=== PATIENT | male | born 1985 | race Caucasian/White ===

== ENCOUNTER 2019-08-18 06:16 | Observation (INO) | payer OTHER, SELFPAY ==
[2019-08-18] VITALS (11 sets, daily range): BP systolic 119–148; BP diastolic 63–94; PULSE 68–140; RESP 14–18; TEMP 36.2–37.1; O2SAT 96–100
--- NOTE | 2019-08-18 | ECHO_ITS ---
Patient Info Name: Jde Gilmore Age: 33 years : 1985 Gender: Male Ht: 75 in Wt: 210 lbs BSA: 2.25 m2 HR: 88 bpm BP: 125 / 94 mmHg Technical Quality: Excellent Exam Date: 08/18/2019 1:43 PM Exam Location: [facility] Pulmonary Patient Status: Inpatient Admit Date: 08/18/2019 Staff Ordering Physician: Scott Chung MD Printed Forms Proofreader: Anabella Mohr RDCS Attending Provider: Scott Chung MD Exam Type: CA echo doppler color flow Study Info Indications R00.0 - Tachycardia, unspecified Complete two-dimensional, color flow and Doppler transthoracic echocardiogram is performed. Summary 1. Left ventricular chamber dimension is normal. 2. Left ventricular systolic function is normal, estimated at 60-65%. 3. The left ventricular diastolic function is normal. 4. E/e' 5 is not elevated. 5. Global longitudinal strain is normal at -18.7%. 6. No pulmonary hypertension, estimated pulmonary arterial systolic pressure is 24 mmHg. Left Ventricle E/e' 5 is not elevated. Global longitudinal strain is normal at -18.7%. Left ventricular chamber dimension is normal. Left ventricular systolic function is normal, estimated at 60-65%. The left ventricular diastolic function is normal. Right Ventricle Right ventricular chamber dimension is normal. Right ventricular systolic function is normal. Left Atria Left atrial chamber dimension is normal. Right Atria Right atrial chamber dimension is normal. Aortic Valve The aortic valve is trileaflet. There is no aortic valve stenosis. There is no aortic valve regurgitation. Pulmonic Valve There is no pulmonic regurgitation. Mitral Valve There is no mitral valve stenosis. There is no mitral valve regurgitation. Tricuspid Valve There is no tricuspid valve regurgitation. No pulmonary hypertension, estimated pulmonary arterial systolic pressure is 24 mmHg. Pericardium/Pleural There is no pericardial effusion. Inferior Vena Cava Normal inferior vena cava with >50% collapse upon inspiration consistent with normal right atrial pressure, 5 mmHg. Aorta The aortic root size at the sinus of Valsalva is normal. Left Ventricular Outflow Tract Name Value Normal LVOT 2D LVOT Diameter 2.1 cm LVOT Doppler LVOT Peak Gradient 4 mmHg LVOT Mean Gradient 2 mmHg LVOT VTI 19 cm LVOT VTI/AV VTI Ratio 0.9 LVOT Stroke Volume 63 ml LVOT CO 5.3 l/min LVOT CI 2.3 l/min/m2 Pulmonic Valve Name Value Normal RVOT Doppler RVOT Peak Gradient 3 mmHg PV Doppler PV Peak Gradient 5 mmHg
--- NOTE | ~2019-08-18 | CT_ITS ---
EXAMINATION: CT brain wo con DATE: 08/18/2019 06:39 INDICATION: Seizure. TECHNIQUE: Computed tomography (CT) of the head was performed without intravenous contrast. The mA wa s adjusted according to patient size. Iterative reconstruction technique was employed. The dose-lengt h product was 832.33 mGy-cm. COMPARISON: None FINDINGS: There is no intracranial hemorrhage, acute infarction, or abnormal intracranial mass lesion . The ventricles are normal in size. The orbits are normal. There is mild mucosal thickening in the p aranasal sinuses. The mastoid air cells are normal. The orbits are normal. IMPRESSION: 1. Normal brain. Motion artifact moderately decreases sensitivity. Reviewed, dictated and finalized at location A.
--- NOTE | ~2019-08-18 | XR_ITS ---
EXAMINATION: XR chest 2V DATE: 08/18/2019 09:22 INDICATION: Seizure. TECHNIQUE: Frontal and lateral views of the chest were obtained. COMPARISON: None. FINDINGS: The chest demonstrates clear lungs without pneumonia, pleural effusion, or pneumothorax. Th e heart size is normal. IMPRESSION: 1. No acute cardiopulmonary disease. Reviewed, dictated and finalized at location A.
--- NOTE | ~2019-08-18 | MR_ITS ---
EXAMINATION: MR brain/brain stem wo/w con DATE: 08/18/2019 16:29 INDICATION: Seizure. TECHNIQUE: Magnetic resonance imaging (MRI) of the brain and brainstem was performed without and with 19 mL MultiHance intravenous contrast. Sequences included sagittal and axial T1-weighted FSE, axial diffusion-weighted FS EPI, axial T2*-weighted GRE, axial T2-weighted FLAIR Propeller, axial T2-weight ed Propeller, coronal T2-weighted FLAIR, and coronal T1-weighted 3D FSPGR. Postcontrast axial and cor onal T1-weighted FSE was obtained. Apparent diffusion coefficient (ADC) maps were created. COMPARISON: Head CT 08/18/2019 FINDINGS: There is polymicrogyria along the sylvian fissures, left worse than right. The hippocampi a re normal and symmetric. There is no intracranial hemorrhage, acute infarction, or abnormal intracran ial mass lesion. The ventricles are normal in size. There is mild mucosal thickening in the ethmoid s inuses. The orbits are normal. The mastoid air cells are normal. IMPRESSION: 1. Bilateral perisylvian polymicrogyria, left worse than right. Reviewed, dictated and finalized at location E.
--- NOTE | 2019-08-18 06:21 | ED.SEIZURE ---
HPI - Seizure General Chief Complaint: Seizure Stated Complaint: ams Time Seen by Provider: 08/18/19 06:19 History of Present Illness HPI Narrative: Brought in by EMS from home for suspected seizure. awoke to find him in bed next to her shaking with altered mental status. unknown how long the event lasted. He was confused and combative for EMS. He was given haldol and valium prior to arrival. On arrival to the ED he is awake and drowsy. No memory of the event. No previous seizures or medical history. He says that he drinks a few beers every other day. No h/o withdrawal or recent changes in drinking habits. No other drug use. No fever, SAENZ, recent illness. Related Data Home Medications Medication Instructions Recorded Confirmed No Home Medications 08/18/19 08/18/19 Allergies Allergy/AdvReac Type Severity Reaction Status Date / Time No Known Allergies Allergy Unverified 08/18/19 06:21 Review of Systems Review of Systems: All systems reviewed & are unremarkable except as noted in HPI and below Constitutional: Constitutional: Denies fever(s) Eyes: Eyes: Denies change in vision Cardiovascular: Cardiovascular: Denies chest pain Respiratory: Respiratory: Denies cough and Denies dyspnea Gastrointestinal: Gastrointestinal: Denies nausea Neurologic: Denies headache(s), Denies numbness and Denies weakness PMFSH Social History Social History Smoking status: Never smoker Alcohol intake: current Drinks per week: 10 Substance use: never Gender identity (if verbalized by the patient): Male Spiritual care concerns: No Agree to blood products: Yes Exam Const: General: healthy appearing and no acute distress Nutritional Appearance: well nourished Orientation/consciousness: patient oriented x3 HENMT: Mouth: Yes moist mucous membranes Other: minor laceration to tongue Eyes: Conjunctivae: conjunctivae normal Pupils: Equal, round and reactive pupils present EOM: EOMs intact bilaterally Resp: Effort & Inspection: normal respiratory effort Auscultation: clear to auscultation bilaterally Cardio: Rate: tachycardic Rhythm: regular rhythm GI: Other: soft, NTND Neuro: General: patient oriented x3, moves all extremities and no focal motor deficits Speech: normal speech Extrem: General: normal to inspection Course Vital Signs Vital signs: Vital Signs Temperature 37.1 C 08/18/19 06:16 Pulse Rate 127 H 08/18/19 06:16 Respiratory Rate 16 08/18/19 06:16 Pulse Oximetry 96 08/18/19 06:16 Temperature 37.1 C 08/18/19 06:16 Pulse Rate 140 H 08/18/19 12:00 Respiratory Rate 16 08/18/19 09:39 Blood Pressure 125/94 H 08/18/19 09:39 Pulse Oximetry 97 08/18/19 09:39 MDM - Seizure MDM Narrative Medical decision making narrative: No specific cause found for seizure. persistently tachycardic despite hydration. I will admit for observation. Differential Diagnosis Differential diagnosis: Likely generalized seizure, new onset seizure and other (alcohol withdrawal, drug induced, COVID19, viral infection) Medical Records Attestation: I reviewed the patient's medical records. Lab Data Attestation: I reviewed the patient's lab results. Result diagrams: 08/18/19 06:28 08/18/19 06:28 Labs: Lab Results 08/18/19 08/18/19 08/18/19 Range/Units 06:28 06:28 06:28 WBC 9.4 (4.5-10.0) K/mm3 RBC 5.35 (4.6-6.20) M/mm3 Hgb 15.2 (14.0-18.0) g/dL Hct 47.1 (42.0-52.0) % MCV 88.0 (80-100) fl MCH 28.4 (26-34) pg MCHC 32.3 (32-36) g/dl RDW 13.0 (11.5-14.5) % Plt Count 251 (150-375) k/mm3 MPV 9.9 (7.4-10.4) fl Immature Gran % (Auto) 0.6 H (0-0.5) % Neut % (Auto) 35.8 L (45.5-73.1) % Lymph % (Auto) 51.3 H (18.3-44.2) % [place] % (Auto) 7.2 (2.6-8.5) % Eos % (Auto) 4.6 H (0-4.4) % Baso % (Auto) 0.5 (0.2-1.2) % Lymph # (Auto) 4.82
[2019-08-18] MEDS: SODIUM CHLORIDE 0.9% IV 1,000 ML 999 ML IV CONT ×2 (06:27→07:40)
[2019-08-18] MEDS: levETIRAcetam 1000MG/NACL100ML 1,000 MG/100 ML BAG 400 MG IVPB (06:27)
--- NOTE | 2019-08-18 06:30 | PC.NURSE ---
Patient to CT on portable monitor with RN and transfill technician.
[2019-08-18 06:36] LABS: Basophils Absolute Auto 0.1 K/mm3 (0.0-0.1); Basophils Percent Auto 0.5 % (0.2-1.2); Eosinophils Absolute Auto 0.4 K/mm3 (0-0.3); Eosinophils Percent Auto 4.6 % (0-4.4); Hematocrit 47.1 % (42.0-52.0); Hemoglobin 15.2 g/dL (14.0-18.0); Immature Granulocyte Absolute 0.06 K/mm3 (0.00-0.031); Immature Granulocyte Percent A 0.6 % (0-0.5); Lymphocytes Absolute Auto 4.82 K/mm3 (0.9-3.2); Lymphocytes Percent Auto 51.3 % (18.3-44.2); Mean Corpuscular HGB Conc 32.3 g/dl (32-36); Mean Corpuscular Hemoglobin 28.4 pg (26-34); Mean Platelet Volume 9.9 fl (7.4-10.4); Monocytes Absolute Auto 0.7 K/mm3 (0.1-0.6); Monocytes Percent Auto 7.2 % (2.6-8.5); Neutrophils Absolute Auto 3.4 K/mm3 (1.3-6.7); Neutrophils Percent Auto 35.8 % (45.5-73.1); Platelet Count Result 251 k/mm3 (150-375); Red Blood Count 5.35 M/mm3 (4.6-6.20); White Blood Count 9.4 K/mm3 (4.5-10.0)
[2019-08-18 06:51] LABS: Ethanol < 10 mg/dL (<10)
--- NOTE | 2019-08-18 06:52 | PC.NURSE ---
Patient denies any hx of drug use, reports he drinks 3 beers every other day, denies any hx of withdrawal symptoms. Pt's at bedside, they report pt has no history of seizures. Pt bit tongue during episode, no incontinence.
[2019-08-18 06:54] LABS: Albumin Level 5.1 g/dL (3.5-5.1); Alkaline Phosphatase 88 U/L (38-126); Aspartate Amino Transferase 58 U/L (17-59); Bilirubin,Total 0.5 mg/dL (0.2-1.3); Blood Urea Nitrogen 14 mg/dL (9-20); Calcium 9.2 mg/dL (8.4-10.2); Carbon Dioxide 15 mmol/L (22-30); Chloride 104 mmol/L (98-107); Estimated CRCL calculation 93 ml/min; Estimated Glomerular Filt Rate > 60; Glucose 164 mg/dL (75-110); Potassium 3.1 mmol/L (3.4-5.0); Sodium 140 mmol/L (137-145)
[2019-08-18 06:57] LABS: Prothrombin Time 12.4 Seconds (11.1-14.7)
[2019-08-18 06:58] LABS: Partial Thromboplastin Time 25.6 SECONDS (22.3-36.8)
[2019-08-18 07:08] LABS: Lactic Acid Reflex 6.3 mmol/L (0.7-2.1)
[2019-08-18 07:08] LABS: Alanine Aminotransferase 34 U/L (4-50)
[2019-08-18 07:18] LABS: Add Urine Microscopic? YES; Appearance Urine Clear (Clear); Bilirubin Urine Negative (Negative); Blood Urine 2+ (Negative); Color Urine Yellow (Yellow); Glucose Urine UA Negative (Negative); Ketones Urine Negative (Negative); Leukocyte Esterase Ur Negative LEU/UL (Negative); Mucus Urine Rare /lpf; Nitrate Urine Negative (Negative); Protein Urine 1+ mg/dL (Negative); RBC Urine 0-2 /hpf (0-2); Specific Grav Ur 1.016 (1.001-1.035); Urobilinogen Urine Negative mg/dL (<2.0); WBC Urine 0-3 /hpf
--- NOTE | 2019-08-18 07:18 | PC.NURSE ---
Bedside report given to SANCHO Alvarez.
[2019-08-18 07:28] LABS: Amphetamine Screen Urine Negative (Negative); Barbiturate Screen Urine Negative (Negative); Benzodiazepines Screen Urine Negative (Negative); Cannabinoid Screen Urine Negative (Negative); Cocaine Screen Urine Negative (Negative); Methadone Screen Urine Negative (Negative); Opiate Screen Urine Negative (Negative); Phencyclidine Screen Urine Negative (Negative)
--- NOTE | 2019-08-18 09:05 | ECG_ITS ---
Measurements Intervals [place] Rate: 109 P: 62 OK: 152 QRS: 36 QRSD: 93 T: 50 QT: 334 QTc: 452 Interpretive Statements SINUS TACHYCARDIA INCOMPLETE RIGHT BUNDLE BRANCH BLOCK BASELINE WANDER- V2 ABNORMAL ECG Electronically Signed On 08-18-2019 14:06:47 CDT by Danish Hall D.O.
[2019-08-18 09:51] LABS: Reflex Lactic Acid Yes or No Add Lactic
[2019-08-18 10:34] LABS: Lactic Acid 1.1 mmol/L (0.7-2.1)
--- NOTE | 2019-08-18 10:45 | ADMGEN ---
This patient, Jed Gilmore, was admitted to Medical Room 348-. Patient/family oriented to hospital policies and general routines including ID bracelet, bed and alarms, visiting hours, pain management, procedures, bathroom and other care routines, personal items, smoking policy, room service/diet, and visiting hours. Valuables list has been completed. Information on how to activate the Rapid Response Team has been discussed. Patient/Family are encouraged to report perceived risks to care and to ask questions if they do not understand what they are told or what they should do.
[2019-08-18] MEDS: LACTATED RINGERS 1,000 ML 125 ML IV CONT ×2 (11:57→22:23)
--- NOTE | 2019-08-18 12:26 | PM.IMHP ---
H&P: HPI History of Present Illness Chief complaint: New onset seizure Narrative: 33yo healthy male brought in by EMS for seizure-like activity. Patient has recollection the events. States he woke when he was. No family at bedside. Patient states that his told on that he was ?flexing? with seizure-like activity. Patient had tongue trauma. According to EMS notes, the awoke to find the patient shaking with altered mental status. He was confused and combative for EMS requiring Haldol and Valium. No history of drug use including IV drug use. He drinks 10 alcoholic drinks a week. His last drink was 3 beers last night. He has never had withdrawal type symptoms. No complaints of chest pain or palpitations. No history of seizures. No family history of seizures. No new medications. He does not take medications at all. Detailed review of systems was performed he has no other complaints. Specifically, he denies headaches, sore throat, shortness of breath, cough, nausea, vomiting, diarrhea, abdominal pain, fever or chills. No recent travel. In the emergency room patient was hemodynamically stable. He should be tachycardic with exertion. Lactic acid 6.3 with metabolic acidosis. Urine drug screen was negative. CT of the brain was negative. Alcohol level less than 10. Patient admitted for further care. Review of Systems Review of Systems: All systems reviewed & are unremarkable except as noted in HPI and below PMFSH Past Medical History Medical History New onset seizure Family History Family History Grandparent Multiple sclerosis Mother Thyroid disease Social History Social History Social History: Patient lives at home with his and 2 children. 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 Alcohol use as mentioned above. He is a full code. He nominated his to be the individual who would make medical decisions for him if he is not able. Smoking status: Never smoker Alcohol intake: current Drinks per week: 10 Substance use: never Gender identity (if verbalized by the patient): Male Spiritual care concerns: No Agree to blood products: Yes Meds Home Medications and Allergies Home Medications Medication Instructions Recorded Confirmed Type levetiracetam [Keppra] 500 mg PO Q12HR #60 tablet 08/19/19 Rx Allergies Allergy/AdvReac Type Severity Reaction Status Date / Time No Known Allergies Allergy Unverified 08/18/19 06:21 Vital Signs Vital Signs - 24 hr 08/18/19 06:16 08/18/19 06:20 08/18/19 06:57 Temperature 98.7 F Pulse Rate 127 H 125 H 111 H Respiratory Rate 16 18 Blood Pressure 119/63 Pulse Oximetry 96 98 08/18/19 07:30 08/18/19 08:30 08/18/19 09:39 Temperature Pulse Rate 112 H 106 H 114 H Respiratory Rate 18 16 16 Blood Pressure 124/68 134/86 125/94 H Pulse Oximetry 96 97 97 08/18/19 10:00 Temperature Pulse Rate 95 Respiratory Rate Blood Pressure Pulse Oximetry Exam Narrative: Exam Narrative: Gen - NARD HEENT - NC/AT, PEERL, EOMI, Sclera clear and anicteric, mmm, lateral tongue trauma. No facial asymmetry. Tongue was midline. Palate francie symmetrically. Neck -supple. No dominant adenopathy or masses. No thyromegaly. Chest -lungs clear to auscultation bilaterally. Normal respiratory rate. CV -heart was regular rate and rhythm. S1-S2. No murmurs gallops or rubs. Telemetry showing occasional sinus tachycardia. Abd -soft. Nontender. Nondistended. Positive bowel sounds. No organomegaly. Ext - No pedal edema Neuro - Alert and oriented. Nonfocal exam. Psych - Nml mood and affect Skin - Warm and dry H&P: Results Labs Labs: Short CBC 08/18/19 Range/Units 06:28 WBC 9.4 (4.5-10.0) K/mm3 Hgb 15.2 (14.0-18.0) g/dL Hct 47.1 (42.0-52.0) % Plt Count 251 (150
--- NOTE | 2019-08-18 13:56 | PC.NURSE ---
Patient states there is no past medical history for immediate family to include.
--- NOTE | 2019-08-18 14:51 | WPDNEURCNPN ---
Assessment and Plan Assessment and plan (1) Hypokalemia: Code(s): E87.6 - Hypokalemia Status: Acute (2) Lactic acidosis: Code(s): E87.2 - Acidosis Status: Acute (3) New onset seizure: Code(s): R56.9 - Unspecified convulsions Status: Acute (4) Sinus tachycardia: Code(s): R00.0 - Tachycardia, unspecified Status: Acute Additional Plan I discussed with him the etiology of the seizure which is most likely in his case related to alcohol consumption all questions were answered risk in the benefits of the future therapy were discussed implications further driving were discussed if his brain MRI is negative hopefully it will be done with and without contrast that he can have the EEG performed as an outpatient I will be happy to follow him in couple of months he should not be driving till we are satisfied that the patient does not in had it a tendency to have recurrent seizure the diagnosis of the spine is the 1st single seizure and he agrees for no anticonvulsant therapy on a long-term basis for right now Consult date: 08/18/19 Time Seen: 14:30 HPI: Jed Gilmore is a 33 year old male 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 has no symptoms at the time of this examination apparently was clearly admitted with a history of having had generalized tonic-clonic seizure with postictal confusion and also tongue biting he does not have any previous history of having had seizure he does not have any history of having had meningitis encephalitis or head injury there is no family history of the seizures he was given Keppra and is on Keppra right now without any side effects Review of Systems Review of Systems: All systems reviewed & are unremarkable except as noted in HPI and below PMFSH Past Medical History Medical History New onset seizure Family History Family History Grandparent Multiple sclerosis Mother Thyroid disease Social History Social History Social History: Patient lives at home with his and 2 children. 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 Alcohol use as mentioned above. He is a full code. He nominated his to be the individual who would make medical decisions for him if he is not able. Smoking status: Never smoker Alcohol intake: current Drinks per week: 10 Substance use: never Gender identity (if verbalized by the patient): Male Spiritual care concerns: No Agree to blood products: Yes Meds Home Medications and Allergies Home Medications Medication Instructions Recorded Confirmed Type No Home Medications 08/18/19 08/18/19 History Allergies Allergy/AdvReac Type Severity Reaction Status Date / Time No Known Allergies Allergy Unverified 08/18/19 06:21 Vital Signs Vital Signs - 24 hr 08/18/19 06:16 08/18/19 06:20 08/18/19 06:57 Temperature 37.1 C Pulse Rate 127 H 125 H 111 H Respiratory Rate 16 18 Blood Pressure 119/63 Pulse Oximetry 96 98 08/18/19 07:30 08/18/19 08:30 08/18/19 09:39 Temperature Pulse Rate 112 H 106 H 114 H Respiratory Rate 18 16 16 Blood Pressure 124/68 134/86 125/94 H Pulse Oximetry 96 97 97 08/18/19 10:00 08/18/19 12:00 Temperature Pulse Rate 95 140 H Respiratory Rate Blood Pressure Pulse Oximetry Exam Const: General: comfortable and no acute distress HENMT: General nose exam: Normal nares present Mouth: Yes moist mucous membranes Other: is small tongue bite the from the seizure Eyes: General: appearance normal, both eyes and all related structures Neck: Neck: supple and no JVD Resp: Effort & Inspection: normal respiratory effort Auscultation: clear to auscultation bilaterally Cardio: Rate: regular rate Rhythm: regular rhythm GI: Auscultation: normal bowel sounds Skin: General skin exam:
[2019-08-18 15:24] LABS: Thyroid Stimulating Hormone Reflex 0.621 uIU/mL (0.465-4.68)
[2019-08-18] MEDS: THIAMINE HCL 100 MG TABLET PO (18:16)
[2019-08-18] MEDS: FOLIC ACID 1 MG TABLET PO (18:16)
[2019-08-18] MEDS: levETIRAcetam 500 MG TABLET PO (18:16)
[2019-08-18] MEDS: POTASSIUM CHLORIDE 20 MEQ PACKET (FOR LIQUID) PO (18:21)
[2019-08-19] VITALS: PULSE 80
[2019-08-19 04:28] VITALS: PULSE 66
[2019-08-19 06:00] VITALS: BP 116/62; PULSE 69; RESP 16; TEMP 36.1; O2SAT 97
[2019-08-19 06:29] LABS: Blood Urea Nitrogen 11 mg/dL (9-20); Calcium 8.9 mg/dL (8.4-10.2); Carbon Dioxide 24 mmol/L (22-30); Chloride 108 mmol/L (98-107); Estimated CRCL calculation 122 ml/min; Estimated Glomerular Filt Rate > 60; Glucose 86 mg/dL (75-110); Potassium 3.5 mmol/L (3.4-5.0); Sodium 139 mmol/L (137-145)
[2019-08-19 08:00] VITALS: PULSE 83
[2019-08-19] MEDS: FOLIC ACID 1 MG TABLET PO (08:56)
[2019-08-19] MEDS: levETIRAcetam 500 MG TABLET PO (08:56)
[2019-08-19] MEDS: THIAMINE HCL 100 MG TABLET PO (08:56)
[2019-08-19] MEDS: LACTATED RINGERS 1,000 ML 125 ML IV CONT (08:58)
--- NOTE | 2019-08-19 11:13 | PM.DS ---
DS: Diagnosis Admitting Diagnosis Admitting Diagnosis: Hypokalemia Discharge Diagnosis (1) Bilateral perisylvian polymicrogyria: Code(s): Q04.3 - Other reduction deformities of brain Status: Acute Assessment and Plan: MRI noting bilateral perisylvian polymicrogyria, left worse than right. Plan to continue Keppra. Discussed with neurology. Okay for discharge. No driving has been discussed. Literature has been provided (2) New onset seizure: Code(s): R56.9 - Unspecified convulsions Status: Acute Assessment and Plan: New onset seizure in otherwise healthy male . Seizure was witnessed. Keppra started on admission. MRI as mentioned above. This potentially could be the cause of his seizures. Discussed with neurology who recommended continuing the Keppra after discharge. Patient has been educated multiple times that he is unable to drive at this time until cleared by Neurology. He voices understanding of this. (3) Sinus tachycardia: Code(s): R00.0 - Tachycardia, unspecified Status: Acute Assessment and Plan: Patient with exertional sinus tachycardia. Most likely related to the metabolic acidosis from the elevated lactic level from his seizure. Patient does however provide history he becomes tachycardic with a heart rate greater than 160 when he exercises. Echocardiogram showing EF of 60-65% with normal diastolic function. TSH normal. Recommended that patient proceed at a slower rate when running and try to build up in endurance and conditioning slowly. (4) Lactic acidosis: Code(s): E87.2 - Acidosis Status: Acute Assessment and Plan: Lactic acid 6.3 on admission. Anion gap 21. Glucose 164 but more likely related to the seizure. Urine was negative for ketones. Repeat lactic acid has normalized. Patient treated with IV fluids. Repeat BMP showing anion gap 7. Glucose normalized as well. (5) Hypokalemia: Code(s): E87.6 - Hypokalemia Status: Acute Assessment and Plan: Potassium 3.1 on admission. Potassium was replaced. Repeat potassium normal now. DS: Summary Hospital Course Reason for hospitalization: 33yo healthy male here for seizure. Please see H&P for details. Hospital Course: As detailed above. Time Spent with Patient Time attestation: Total time spent providing and/or coordinating discharge services: 38 minutes Time spent: Greater than 30 minutes Specific discharge activities: long discussion with patient about the MRI findings. Literature was provided. Exam Narrative: Exam Narrative: Gen - NARD Chest -lungs clear to auscultation bilaterally. Normal respiratory rate. CV - Regular rate in rhythm Abd - soft. Nontender. Nondistended. Positive bowel sounds Ext - No pedal edema Neuro - Alert and oriented. Nonfocal exam. Psych - Nml mood and affect Skin - Warm and dry DS: Data Data Completed and Pending Labs on day of discharge: Labs from last 24 hours 08/19/19 08/18/19 05:20 14:03 Sodium 139 Potassium 3.5 Chloride 108 H Carbon Dioxide 24 BUN 11 Creatinine 0.90 Estim Creat Clear Calc 122 Estimated GFR > 60 Glucose 86 Calcium 8.9 TSH (Reflex) 0.621 Discharge Plan Discharge Attending physician on discharge: Scott Chung Consulting providers: Clarence Hernandez Discharging Clinician: Scott Chung Anticipated Discharge Date/Time: 08/19/19 11:33 Patient Disposition: Home, Self-Care Activity: no driving Diet: regular Discharge Instructions: please call Neurology to set up an appointment. Patient Instructions: Antibiotic Form Stand Alone Forms: General Discharge Information Follow-up/Referrals: Cale Ponce MD [Primary Care Provider] - Call for Appointment Clarence Hernandez MD [Physician] - Call for Appointment Discharge Medications: New levetiracetam [Keppra] 500 mg Tablet 500 mg PO Q12HR Qty: 60 R
== END 2019-08-19 11:54 | disposition home or self-care (01) ==
LOC: ANHED 06:39 → ANH3MED 09:30
PROVIDERS: Admitting Provider Internal Medicine; Emergency Provider Emergency Medicine; PCP Family Medicine; Visit Provider Internal Medicine
DX: R56.9 Unspecified convulsions (principal); Q04.3 Other reduction deformities of brain; R00.0 Tachycardia, unspecified; E87.2 Acidosis; E87.6 Hypokalemia; Z72.89 Other problems related to lifestyle
CPT/HCPCS: 36415; 70450; 70553; 71046; 80048; 80053; 80307; 81001; 83605; 84443; 85025; 85610; 85730; 93005; 93306; 96360; 96361; 96365; 99285; A9270; A9577; G0378; J1953; J7030; J7120

== ENCOUNTER 2021-02-09 08:30 | Emergency (ER) | payer OTHER, SELFPAY ==
[2021-02-09] VITALS (12 sets, daily range): BP systolic 107–123; BP diastolic 75–80; PULSE 97–127; RESP 9–18; TEMP 36.8; O2SAT 92–99
--- NOTE | 2021-02-09 08:45 | ECG_ITS ---
Measurements Intervals [place] Rate: 122 P: 49 DC: 132 QRS: 27 QRSD: 89 T: 54 QT: 337 QTc: 481 Interpretive Statements SINUS TACHYCARDIA BORDERLINE ST-T WAVE ABNORMALITY- ANT/HIGH LAT LEAD BASELINE WANDER- V4 ABNORMAL ECG Electronically Signed On 02-09-2021 11:13:44 CDT by Danish Hall D.O.
--- NOTE | 2021-02-09 08:45 | ED.SEIZURE ---
HPI - Seizure General Chief Complaint: Seizure Stated Complaint: SEIZURE Time Seen by Provider: 02/09/21 08:31 History of Present Illness HPI Narrative: Patient presents with concern for seizure. Patient reports he had a seizure approximately a year and 1/2 hours admitted to this facility had MRI was allowed by neurologist. He was discharged home on Keppra twice daily. He supposed to have an outpatient EEG per records however patient reported he never follow-up with a neurologist this is been taking his Keppra. Over the past 2 weeks he tried to self wean his medications taking any medications over the past couple days. This morning he had 2 episodes per EMS and of tonic-clonic seizures with a postictal state is referred to the ER for evaluation. Reports he feels well right now denies any complaints such as headache, chest pain, abdominal pain. Denies any focal numbness or weakness. Ports of the past days been his usual state of health is not any fevers cough congestion. Seizure History: Yes Related Data Allergies Allergy/AdvReac Type Severity Reaction Status Date / Time No Known Allergies Allergy Unverified 08/18/19 06:21 Review of Systems Review of Systems: CONSTITUTIONAL: Denies fever, chills, or sweats. EYES: Denies visual changes, redness, or discharge. ENT: Denies rhinorrhea, congestion, sore throat, or otalgia. CARDIOVASCULAR: Denies chest pain, palpitations, or edema. RESPIRATORY: Denies cough or dyspnea. GASTROINTESTINAL: Denies abdominal pain, nausea, vomiting, or diarrhea. GENITOURINARY: Denies dysuria or hematuria. SKIN: Denies rash or itching. MUSCULOSKELETAL: Denies back pain, joint pain, or myalgia. NEUROLOGIC: Denies headache, numbness, dizziness, or weakness. PSYCHIATRIC: Denies anxiety or depression. All systems reviewed & are unremarkable except as noted in HPI and below PMFSH Past Medical History Medical History (Updated 02/09/21 @ 09:54 by Chris Garcia MD) New onset seizure Family History Family History Grandparent Multiple sclerosis Mother Thyroid disease Social History Social History Social History: Patient lives at home with his and 2 children. 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 Alcohol use as mentioned above. He is a full code. He nominated his to be the individual who would make medical decisions for him if he is not able. Smoking status: Never smoker Alcohol intake: current Drinks per week: 10 Substance use: never Gender identity (if verbalized by the patient): Male Spiritual care concerns: No Agree to blood products: Yes Exam Narrative: GENERAL: Well-appearing, well-nourished, and in no acute distress. HEAD: Normocephalic, atraumatic. EYES: PERRLA and EOMI. ENT: Nares clear, no rhinorrhea or epistaxis. Mucous membranes moist. NECK: Supple. No masses. No JVD ABDOMEN: Soft, nontender, nondistended, normal active bowel sounds. EXTREMITIES: Normal range of motion. No edema. SKIN: Warm, dry, no rash. NEURO: Cranial nerves II through XII are intact patient has 5 out of 5 strength in all extremities sensation intact to light touch in all extremities alert and oriented x3. PSYCH: Normal mood and affect. Course Reevaluation(s) Reevaluation #1: Patient is resting comfortably has no complaints and is feeling back to his usual state of health. Family is at bedside and for patient is like he is usual self. Suspect recurrent seizure due to weaning of medication. Patient is appropriate for resumption of his medications and outpatient follow-up with a neurologist. Patient comfortable outpatient plan. Seizure precautions and education given Date: 02/09/21 Time: 09:51 Vital Signs Vital signs: Vital Signs Temperature 36.8 C 02/09/21 08:25 Pulse Rate 127 H 02/09/21 08:25 Respiratory Rate 16 02/09/21 08:25 Blood Pressure 107/76
[2021-02-09] MEDS: SODIUM CHLORIDE 0.9% IV 1,000 ML 999 ML IV CONT (08:55)
[2021-02-09] MEDS: levETIRAcetam 500 MG TABLET PO (08:55)
[2021-02-09 09:25] LABS: Basophils Percent Auto 0.4 % (0.2-1.2); Eosinophils Absolute Auto 0.1 K/mm3 (0-0.3); Eosinophils Percent Auto 0.9 % (0-4.4); Hematocrit 42.2 % (42.0-52.0); Hemoglobin 14.3 g/dL (14.0-18.0); Immature Granulocyte Absolute 0.04 K/mm3 (0.00-0.031); Immature Granulocyte Percent A 0.5 % (0-0.5); Lymphocytes Absolute Auto 0.61 K/mm3 (0.9-3.2); Lymphocytes Percent Auto 7.9 % (18.3-44.2); Mean Corpuscular HGB Conc 33.9 g/dl (32-36); Mean Corpuscular Hemoglobin 29.6 pg (26-34); Mean Corpuscular Volume 87.4 fl (80-100); Mean Platelet Volume 9.7 fl (7.4-10.4); Monocytes Absolute Auto 0.4 K/mm3 (0.1-0.6); Monocytes Percent Auto 4.8 % (2.6-8.5); Neutrophils Absolute Auto 6.7 K/mm3 (1.3-6.7); Neutrophils Percent Auto 85.5 % (45.5-73.1); Platelet Count Result 184 k/mm3 (150-375); Red Blood Count 4.83 M/mm3 (4.6-6.20); Red Cell Distribution Width 12.4 % (11.5-14.5); White Blood Count 7.8 K/mm3 (4.5-10.0)
[2021-02-09 09:35] LABS: Anion Gap 14 mmol/L (8-16); Blood Urea Nitrogen 11 mg/dL (9-20); Carbon Dioxide 19 mmol/L (22-30); Chloride 109 mmol/L (98-107); Estimated CRCL calculation 109 ml/min; Estimated Glomerular Filt Rate > 60; Glucose 158 mg/dL (65-110); Potassium 3.5 mmol/L (3.4-5.0); Sodium 142 mmol/L (137-145)
== END 2021-02-09 10:53 | disposition home or self-care (01) ==
PROVIDERS: Emergency Provider Emergency Medicine; PCP Family Medicine
DX: R56.9 Unspecified convulsions (principal)
CPT/HCPCS: 36415; 80048; 85025; 93005; 96360; 99283; A9270; J7030

== ENCOUNTER → 2021-05-14 09:03 | Outpatient (CLI) | payer OTHER, SELFPAY ==
[2021-05-14 21:05] LABS: SARS-CoV-2 RNA PCR Positive
== END ==
PROVIDERS: PCP Family Medicine; Visit Provider Nurse Practitioner Gerontology
DX: U07.1 COVID-19 (principal)
CPT/HCPCS: C9803; U0003; U0005